=== PATIENT | female | born 1995 | race Caucasian/White ===

== ENCOUNTER 2017-04-04 11:37 | Emergency (ER) | payer MEDICAID ==
[~2017-04-04] VITALS: Ht 160 cm; Wt 68.0 kg
[2017-04-04 12:16] VITALS: BP 125/77
== END 2017-04-04 12:51 | disposition home or self-care (01) ==
LOC: ER 11:37
DX: J01.10 Acute frontal sinusitis, unspecified (principal)

== ENCOUNTER 2017-08-09 21:41 | Emergency (ER) | payer MEDICAID, OTHER ==
[~2017-08-09] VITALS: Ht 160 cm; Wt 68.0 kg
[2017-08-09] MEDS ORDERED: ACETAMINOPHEN 325 MG TAB PO ONE (22:00)
[2017-08-09] MEDS ORDERED: LEVETIRACETAM INJ 1,000 MG in SODIUM CHL 0.9% 100 ML IV ONE (23:00)
[2017-08-09 23:22] LABS: Basophils # (auto) 0.1 uL; Basophils % (auto) 0.9 % (0.0-2.0); Eosinophils # (auto) 0.2 uL; Eosinophils % (auto) 2.5 % (0.0-7.0); Hematocrit 40.1 % (36.0-46.0); Hemoglobin 13.7 g/dL (12.2-16.2); Lymphocytes # (auto) 2.5 uL; Lymphocytes % (auto) 29.3 % (10.0-50.0); Mean Corpuscular Hemoglobin 27.5 pg (28.0-32.0); Mean Corpuscular Volume 80.9 fL (80.0-100.0); Mean Platelet Volume 7.2 fL (6.9-10.8); Monocytes # (auto) 0.4 uL; Monocytes % (auto) 4.9 % (0.0-12.0); Neutrophils # (auto) 5.3 uL; Neutrophils % (auto) 62.4 % (37.0-80.0); Platelet Count (auto) 356 10^3/uL (140-450); White Blood Cell 8.4 10^3/uL (4.4-10.8)
[2017-08-09] MEDS ORDERED: LEVETIRACETAM 500 MG/5ML INJ IV ONE (23:27)
[2017-08-09 23:44] LABS: Albumin 4.1 g/dL (3.4-5.0); Alkaline Phosphatase 84 U/L (45-117); Anion Gap 7 (5-15); Aspartate Aminotransferase 5 U/L (15-37); BUN/Creatinine Ratio 19.2; Bilirubin, Total 0.4 mg/dL (0.2-1.0); Blood Urea Nitrogen 14 mg/dL (7-18); Calcium 8.8 mg/dL (8.5-10.1); Carbon Dioxide 26 mmol/L (21-32); Chloride 103 mmol/L (98-107); GFR African American 129 mL/min; GFR Non-African American 107 mL/min; Glucose 104 mg/dL (74-106); Magnesium 2.1 mg/dL (1.6-2.6); Potassium 3.7 mmol/L (3.5-5.1); Sodium 136 mmol/L (136-145)
[2017-08-10] MEDS ORDERED: HYDROcodone-ACET 10/325MG TAB PO ONE
[2017-08-10 00:16] VITALS: BP 109/63
== END 2017-08-10 00:22 | disposition home or self-care (01) ==
LOC: EDBD 21:41 → ER 21:43
DX: R56.9 Unspecified convulsions (principal); G43.909 Migraine, unspecified, not intractable, without status migrainosus
CPT/HCPCS: 36415; 70450; 80053; 80307; 80320; 81025; 83735; 85025; 94761; 96365; 99285; J1953